=== PATIENT | female | born 1995 | race Caucasian/White ===

== ENCOUNTER 2025-04-15 18:34 | Emergency (ER) | payer OTHER, SELFPAY ==
[2025-04-15 18:46] VITALS: BP 106/74
[2025-04-15 19:08] LABS: Hematocrit 36.5 % (37.0-47.0); Hemoglobin 12.6 g/dL (12.0-16.0); Mean Corp Hgb Conc. 34.5 g/dL (33.0-37.0); Mean Corpuscular Volume 86.3 fL (81.0-99.0); Nucleated Red Blood Cells % 0 %; Platelet Count 189 10^3/uL (130-400); Red Cell Dist. Width 11.8 % (11.5-14.5)
[2025-04-15 19:28] LABS: HCG, Serum Qualitative Screen Negative
[2025-04-15 19:32] LABS: ALT (SGPT) 23 U/L (0-35); AST (SGOT) 23 U/L (14-36); Albumin 4.2 g/dl (3.5-5.0); Alkaline Phosphatase 59 U/L (38-126); Blood Urea Nitrogen 10 mg/dl (7-17); Calcium 8.9 mg/dl (8.4-10.2); Carbon Dioxide 27 mmol/L (22-30); Chloride 107 mmol/L (98-107); Glucose 76 mg/dl (70-99); Potassium 4.3 mmol/L (3.5-5.1); Sodium 137 mmol/L (135-145); Total Protein 6.9 g/dl (6.3-8.2); eGFR > 60.00
[2025-04-15 19:42] LABS: Troponin I 0.012 ng/ml
--- NOTE | 2025-04-15 21:10 | ED.GENMED ---
History of Present Illness
General
Chief Complaint: Chest Pain
Source: patient
Exam Limitations: none
Time Seen by Provider: 04/15/25 21:08
Nursing documentation reviewed up to this point in time: agreed with
History of Present Illness
History of Present Illness:
Note:
CHIEF COMPLAINT(S)
Palpitations, lightheadedness, and shortness of breath.
HISTORY OF PRESENT ILLNESS
The patient is a 30-year-old female with a history of cardiac symptoms being managed by a fiber optics technician, presenting with recent onset of palpitations, lightheadedness, and shortness of breath. She reports that these symptoms began approximately one
hour after taking an antibiotic she had not taken before. While her cardiac symptoms have been present in the past, she noted that they significantly flared after this medication. The patient has allergies to multiple medications, including
penicillin, Bactrim (sulfamethoxazole and trimethoprim), and Levaquin (levofloxacin), reporting severe dizziness and headache with levofloxacin. She has taken doxycycline before, which caused gastrointestinal discomfort, but not an allergic
reaction. The palpitations are described as feeling like the heart is 'pounding out of my chest.' Her cardiac symptoms are somewhat improved presently but persist to a lesser degree. She was initially given the antibiotic for sinus pressure by her
primary care physician.
ALLERGIES
Penicillin, Bactrim (sulfamethoxazole and trimethoprim), Levaquin (levofloxacin).
MEDICATIONS
- Carvedilol
- Amitriptyline
- Ambien (zolpidem) for sleep
- Imitrex (sumatriptan) for migraines
- Propranolol prescribed by fiber optics technician for autonomic symptoms (not currently taken)
- control
- Doxycycline (previous usage noted, gastrointestinal side effects reported)
REVIEW OF SYSTEMS
- Cardiovascular: Palpitations, described as heart pounding
- Neurological: Lightheadedness
- Respiratory: Shortness of breath
- Ear, Nose, and Throat: Sinus pressure
PHYSICAL EXAM
General: Alert, no acute distress.
Skin: Warm, dry.
Head: Normocephalic, atraumatic.
Neck: Supple, trachea midline.
Eye, Ears, nose, mouth and throat: Oral mucosa moist.
Cardiovascular: Normal peripheral perfusion, No edema.
Respiratory: Respirations are non-labored.
Gastrointestinal: Abdomen nondistended.
Back: Normal range of motion, Normal alignment.
Musculoskeletal: Normal range of motion, normal strength.
Neurological: Alert and oriented to person, place, time, and situation, No focal neurological deficit observed.
Psychiatric: Cooperative, appropriate mood & affect.
PROBLEM LIST
Acute Problems:
- Palpitations
- Lightheadedness
- Shortness of breath
Chronic Problems:
- History of cardiac symptoms managed by a fiber optics technician
PLAN
1. Evaluate possible allergic reaction to the antibiotic recently administered; consider alternative treatments given the patients history of drug allergies.
2. Monitor cardiac symptoms and consider follow-up with the patients fiber optics technician.
3. Review patients allergy profile and adjust future medication plans accordingly.
4. Consider additional testing or monitoring to assess cardiac function in light of symptoms reported.
DIFFERENTIAL DIAGNOSIS
The Differential Diagnosis includes, in no particular order and is not limited to:
1. Drug-induced cardiac symptoms
2. Allergic reaction to new medication
3. Autonomic dysfunction
4. Anxiety or stress-related palpitations
5. Arrhythmia
6. Infection-induced cardiac strain
7. Hyperthyroidism
8. Electrolyte imbalance
9. Heart valve abnormalities
10. Essential hypertension
EKG
My independent EKG interpretation is:
- Time of EKG: Not specified
- Rhythm: Normal sinus rhythm
- Heart rate: 88 bpm
- [place] interval: Normal
- QRS duration: Normal
- QT interval: Normal
- [place]: Normal
- Abnormalities: None observed; normal EKG
Disposition:
SUMMARY OF ENCOUNTER
The patient, a 30-year-old female with a history of cardiac symptoms, presented to the emergency department with palpitations, lightheadedness, and shortness of breath that began shortly after taking clarithromycin (Biaxin) for sinusitis. These
symptoms were managed in the emergency department with discontinuation of clarithromycin due to a suspected adverse drug reaction, and her treatment was transitioned to doxycycline, which the patient had previously tolerated. Cardiac monitoring and
an EKG did not reveal any dysrhythmias. Her symptoms stabilized, allowing for discharge.
DISPOSITION
The patient was discharged with instructions to follow up with primary care and return precautions were provided.
ASSESSMENT
The patient experienced palpitations, lightheadedness, and shortness of breath, likely due to an adverse drug reaction to clarithromycin (Biaxin).
PLAN
Discontinue clarithromycin and treat sinusitis with doxycycline. Monitor for further cardiac symptoms.
MEDICATION RECONCILIATION
- Discontinue clarithromycin (Biaxin).
- Initiate doxycycline treatment for sinusitis.
MEDICAL DECISION MAKING
-Complexity of Data Reviewed: Chronic conditions affecting care [history of cardiac symptoms managed by a fiber optics technician]. Differential diagnosis included drug-induced cardiac symptoms, allergic reaction to new medication, autonomic dysfunction,
anxiety or stress-related palpitations, arrhythmia, infection-induced cardiac strain, hyperthyroidism, electrolyte imbalance, heart valve abnormalities, and essential hypertension.
-Data:
Category 1
My independent interpretation of EKG: Normal sinus rhythm with no abnormalities noted.
Category 3
Management of patients care was discussed with primary care physician to ensure follow-up after discharge.
-Risk:
Consideration of Admission/Observation: Escalation of care including admission/observation was considered given the complexity and risk of the patients presenting complaint, exam findings, and/or their underlying comorbidities. However, ultimately I
feel the patient is safe for outpatient management with close follow-up. Reasoning: Work-up reassuring, does not reveal any acute life/organ-threatening processes, patients symptoms well controlled upon reevaluation, reexamination is reassuring,
vitals are stable, patient agreeable with discharge, reliable for follow-up.
DIAGNOSIS
- Palpitations due to adverse drug reaction from clarithromycin (ICD-10: T88.7).
- Sinusitis (ICD-10: J01.90).
- Suspected adverse drug reaction from clarithromycin (Biaxin) (ICD-10: T88.7).
Past History
Past History
ED Past Medical History: Asthma
ED Past Surgical History: Cardiac and Gynecological
Social History
Tobacco: Non-smoker
Alcohol: Occasional
Drug: None
Personal: Single
Living: with family
Employment: Student
Family History
Family History: Negative Early CAD
Phy Exam
Physical Exam
Physical Exam:
.
Scores
Heart Score for Chest Pain Patients
STEMI patient?: No
History: Slightly or Non-Suspicious
ECG: Normal
Age: </= 45 years
Risk Factors: No Risk Factors
Troponin: </= Normal Limit
Heart Score for Chest Pain Patients: 0
Heart Score Risk: 2.5% MACE over next 6 weeks
Course
Orders/Labs/Results
Orders:
Orders
04/15/25 18:37
Electrocardiogram (*1) Urgent
Reason for Study: Chest Pain
EKG- Treatment ONCE
04/15/25 18:50
Test Result ONCE
04/15/25 18:55
Complete Blood Count/With Diff Urgent
Comprehensive Metabolic Panel Urgent
HCG, Serum Qualitative Screen Urgent
Comment: Notify provider if positive test present
Troponin I Urgent
Abnormal Lab Results
04/15/25
18:55
WBC 3.9 L 10^3/uL
(4.8-10.8)
Hct 36.5 L %
(37.0-47.0)
MPV 11.0 H fL
(7.4-10.4)
Monocytes % 10.1 H %
(1.7-9.3)
04/15/25 18:55
04/15/25 18:55
Vital Signs
Initial and Last Documented VS:
Initial Vital Signs
Temp Pulse Resp BP Pulse Ox
98.3 F 96 16 106/74 100
04/15/25 18:46 04/15/25 18:46 04/15/25 18:46 04/15/25 18:46 04/15/25 18:46
Last Documented Vital Signs
Temp Pulse Resp BP Pulse Ox
98.3 F 75 11 123/99 99
04/15/25 18:46 04/15/25 21:17 04/15/25 21:17 04/15/25 21:17 04/15/25 21:17
*Pulse Oximetry
SaO2: 100
Oxygen Mode of Delivery: Room air
Patient hypoxic: no
*Critical Care Note
Total Time (30-74mins, 75-104mins- exclusive of procedures): Not Applicable
ED Attending Note
-
Portions of this chart may have been created with voice recognition software.� Occasional wrong word or��sound alike� substitutions may have occurred due to the inherent limitations of voice recognition software.
Discharge Plan
Departure
Patient Disposition: Home (Routine Discharge)
Date of Disposition: 04/15/25
Time of Disposition: 21:29
Patient with high blood pressure during this ER visit?: Yes
Condition: Good
Discharge Problem:
Sinusitis, Adverse drug effect
Instructions: Sinusitis in adults, Palpitations, Side effects from medicines in adults - ED (DC), BLOOD PRESSURE
Prescriptions:
New
doxycycline hyclate 100 mg capsule
100 mg PO BID Qty: 14 0RF
No Action
trazodone 50 MG tablet
50 mg PO QPM
cetirizine [Zyrtec] 10 MG tablet
10 mg PO DAILY
propranolol 10 MG tablet
10 mg PO BID
hydrochlorothiazide [Microzide] 12.5 MG capsule
12.5 mg PO Q48H
spironolactone 50 MG tablet
50 mg PO DAILY
norethindrone-e.estradiol-iron [Lo Loestrin Fe] 1 EACH tablet
1 ea PO DAILY
Interventions
Interventions:
*Risk Screen - Suicide Last Done: 04/15/25 18:46
*General Assessment Last Done: 04/15/25 21:16
*Neglect/Abuse Screening Last Done: 04/15/25 18:46
*ED COVID-19 Vaccine History Last Done: 04/15/25 21:16
*ED Influenza Vaccine History Last Done: 04/15/25 21:16
[facility] [place] Fall Risk Assessment Tool Last Done: 04/15/25 21:16
ED- Cardiac Assessment Last Done: 04/15/25 21:17
Discharge Date and Time
Print Language: KOREAN
[2025-04-15 21:17] VITALS: BP 123/99
== END 2025-04-15 21:56 | disposition home or self-care (01) ==
LOC: EMR 18:34
PROVIDERS: EMERGENCY PHYSICIAN Emergency Medicine; FAMILY PHYSICIAN Family Medicine
DX: J32.9 Chronic sinusitis, unspecified (principal); R00.2 Palpitations; R07.9 Chest pain, unspecified; T50.995A Adverse effect of other drugs, medicaments and biological substances, initial encounter; X58.XXXA Exposure to other specified factors, initial encounter; J45.909 Unspecified asthma, uncomplicated; Z92.0 Personal history of contraception; Z88.2 Allergy status to sulfonamides; Z88.0 Allergy status to penicillin; Z88.1 Allergy status to other antibiotic agents
CPT/HCPCS: 99284; 80053; 84484; 84703; 85025; 93005